=== PATIENT | female | born 1995 | race American Indian/Alaskan Native ===

== ENCOUNTER 2017-03-03 10:31 | Emergency (ER) | payer OTHER ==
[2017-03-03 11:10] VITALS: RESP 18; TEMP 99; O2SAT 99; BMI 23.6
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
[2017-03-03 11:51] VITALS: BP 122/72; PULSE 72
== END 2017-03-03 11:52 | disposition home or self-care (01) ==
LOC: C.ER 10:31
DX: Z20.6 Contact with and (suspected) exposure to human immunodeficiency virus [HIV] (principal); Y04.0XXA Assault by unarmed brawl or fight, initial encounter